=== PATIENT | female | born 1980 | race Caucasian/White ===

== ENCOUNTER 2017-01-08 13:19 | Inpatient (IN) | payer OTHER ==
[~2017-01-08] VITALS: Ht 162.6 cm; Wt 76.2 kg
[~2017-01-08 13:19] MED LIST: LISI10TA PO; METF500T4 PO; PRAV10TA39 PO
[2017-01-08] MEDS ORDERED: ASPI-1182 PO (13:35)
[2017-01-08] MEDS ORDERED: GABA-529 PO (13:35)
[2017-01-08] MEDS ORDERED: METO50 PO (13:35)
[2017-01-08 13:42] LABS: GLUCOSE,POINT OF CARE 154 MG/DL (70-110)
[2017-01-08] MEDS ORDERED: SODIUM CHLORIDE 0.9% 1,000 ML IV ONE (13:45)
[2017-01-08 13:52] LABS: BASOPHILS % (AUTO) 0.8 % (0.0-2.0); EOSINOPHILS % (AUTO) 1.6 % (1.0-6.0); HEMATOCRIT 27.6 % (36-46); HEMOGLOBIN 9.6 g/dL (12.0-16.0); LYMPHOCYTES # (AUTO) 1.3 K/uL (1.0-4.8); LYMPHOCYTES % (AUTO) 19.1 % (22.0-44.0); MEAN CORPUSCULAR HEMOGLOBIN 29.9 pg (26.0-34.0); MEAN CORPUSCULAR HGB CONC 34.7 G/dL (31.0-37.0); MEAN CORPUSCULAR VOLUME 86 fL (80-100); MONOCYTES # (AUTO) 0.6 K/uL (0.1-1.0); MONOCYTES % (AUTO) 9.2 % (2.0-9.0); NEUTROPHILS # (AUTO) 4.8 K/uL (1.8-7.7); NEUTROPHILS % (AUTO) 69.3 % (40.0-70.0); PLATELET COUNT (AUTO) 333 K/uL (150-450)
[2017-01-08 14:00] LABS: CREATININE 1.49 mg/dL (0.60-1.30); POTASSIUM 4.3 mmol/L (3.5-5.1)
[2017-01-08 14:02] LABS: PROTHROMBIN TIME 10.4 SEC (9.4-11.6)
[2017-01-08 14:05] LABS: ALBUMIN 3.9 g/dL (3.4-5.0); BILIRUBIN,TOTAL 0.6 mg/dL (0.1-1.0); TOTAL PROTEIN, SERUM 7.7 g/dL (6.4-8.2)
[2017-01-08] MEDS ORDERED: SODIUM CHLORIDE 0.9% 100 ML ONE (14:16)
[2017-01-08] MEDS ORDERED: IOVERSOL 350 MG/ML 100 ML VIAL ONE (14:16)
[2017-01-08] MEDS ORDERED: ACETAMINOPHEN 325 MG TABLET PO PRN (15:30)
[2017-01-08] MEDS ORDERED: ONDANSETRON HCL 4 MG/2 ML VIAL IVP PRN (15:30)
[2017-01-08] MEDS ORDERED: 0.9% SODIUM CHLORIDE 10 ML SYRINGE IVP PRN (15:30)
[2017-01-08 17:27] VITALS: BP 158/82
[2017-01-08 19:36] VITALS: BP 162/93
[2017-01-09 00:55] VITALS: BP 147/86
[2017-01-09 06:12] LABS: BASOPHILS % (AUTO) 1.1 % (0.0-2.0); EOSINOPHILS % (AUTO) 4.5 % (1.0-6.0); HEMOGLOBIN 9.7 g/dL (12.0-16.0); LYMPHOCYTES # (AUTO) 2.2 K/uL (1.0-4.8); LYMPHOCYTES % (AUTO) 37.4 % (22.0-44.0); MEAN CORPUSCULAR HGB CONC 34.6 G/dL (31.0-37.0); MEAN CORPUSCULAR VOLUME 87 fL (80-100); MONOCYTES # (AUTO) 0.6 K/uL (0.1-1.0); MONOCYTES % (AUTO) 10.3 % (2.0-9.0); NEUTROPHILS # (AUTO) 2.7 K/uL (1.8-7.7); NEUTROPHILS % (AUTO) 46.7 % (40.0-70.0); PLATELET COUNT (AUTO) 307 K/uL (150-450); RED BLOOD CELL COUNT(AUTO) 3.22 MIL/uL (4.00-5.20); RED CELL DISTRIBUTION WIDTH 14.1 % (11.5-14.5); WHITE BLOOD COUNT (AUTO) 5.8 K/uL (4.5-11.0)
[2017-01-09 06:14] VITALS: BP 160/88
[2017-01-09 06:19] LABS: ALBUMIN 3.1 g/dL (3.4-5.0); BILIRUBIN,TOTAL 0.3 mg/dL (0.1-1.0); CALCIUM, TOTAL 8.5 mg/dL (8.8-10.5); CREATININE 1.18 mg/dL (0.60-1.30); POTASSIUM 3.9 mmol/L (3.5-5.1); TOTAL PROTEIN, SERUM 6.8 g/dL (6.4-8.2)
[2017-01-09 07:38] VITALS: BP 141/85
[2017-01-09] MEDS ORDERED: ENOXAPARIN SODIUM 40 MG/0.4 ML PF SYRINGE SQ SCH (09:00)
[2017-01-09 11:04] VITALS: BP 145/81
[2017-01-09] MEDS ORDERED: ACETAMINOPHEN 325 MG TABLET PO PRN (14:30)
[2017-01-09] MEDS ORDERED: MAGNESIUM HYDROXIDE SUSPENSION 30 ML UDCUP PO PRN (14:30)
[2017-01-09] MEDS ORDERED: ASPIRIN 81 MG EC TABLET PO SCH (14:30)
[2017-01-09] MEDS ORDERED: IPRATROPIUM BROMIDE 0.5 MG/2.5 ML NEB SOLUTION NEB PRN (14:30)
[2017-01-09] MEDS ORDERED: MORPHINE SULFATE 2 MG/ML SYRINGE IVP PRN (14:30)
[2017-01-09] MEDS ORDERED: HYDROCODONE/ACETAMINOPHEN 5-325 MG TABLET PO PRN (14:30)
[2017-01-09] MEDS ORDERED: BISACODYL 10 MG RECTAL RECTAL SUPPOSITORY PR PRN (14:30)
[2017-01-09] MEDS ORDERED: ALBUTEROL SULFATE 2.5 MG/0.5 ML NEB SOLUTION NEB PRN (14:30)
[2017-01-09] MEDS ORDERED: ZOLPIDEM TARTRATE 5 MG TABLET PO PRN (14:30)
[2017-01-09] MEDS ORDERED: ONDANSETRON HCL 4 MG/2 ML VIAL IVP PRN (14:30)
[2017-01-09] MEDS ORDERED: METOPROLOL TARTRATE 50 MG TABLET PO ONE (14:30)
[2017-01-09 14:44] LABS: GLUCOSE,POINT OF CARE 162 MG/DL (70-110)
[2017-01-09 14:44] LABS: GLUCOSE,POINT OF CARE 274 MG/DL (70-110)
[2017-01-09 15:24] VITALS: BP 130/86
[2017-01-09] MEDS ORDERED: MetFORMIN HCL 500 MG TABLET PO SCH (18:00)
[2017-01-09 20:02] VITALS: BP 153/96
[2017-01-09] MEDS ORDERED: PRAVASTATIN SODIUM 10 MG TABLET PO SCH (21:00)
[2017-01-09] MEDS ORDERED: DOCUSATE SODIUM 100 MG CAPSULE PO SCH (21:00)
[2017-01-09] MEDS ORDERED: GABAPENTIN 100 MG CAPSULE PO SCH (21:00)
[2017-01-10] MEDS ORDERED: HEPARIN SODIUM,PORCINE 5,000 UNITS/ML VIAL SQ SCH (08:00)
[2017-01-10] MEDS ORDERED: LISINOPRIL 10 MG TABLET PO SCH (09:00)
[2017-01-10] MEDS ORDERED: ASPIRIN 81 MG EC TABLET PO SCH (09:00)
[2017-01-10] MEDS ORDERED: METOPROLOL TARTRATE 50 MG TABLET PO SCH (09:00)
[2017-01-10] MEDS ORDERED: PANTOPRAZOLE SODIUM 40 MG/VIAL IVP SCH (09:00)
== END 2017-01-09 20:30 | disposition home or self-care (01) | DRG 204 ==
LOC: EMS 13:20 → INTOOBSV 16:20 → OBSVTOIN 16:20 → 5S 16:20
PROVIDERS: ADMIT Hospitalist; ATTEND Hospitalist
DX: R55 Syncope and collapse (principal); I10 Essential (primary) hypertension; D64.9 Anemia, unspecified; F15.10 Other stimulant abuse, uncomplicated; E11.9 Type 2 diabetes mellitus without complications; E78.5 Hyperlipidemia, unspecified; Z96.659 Presence of unspecified artificial knee joint; Z79.899 Other long term (current) drug therapy
CPT/HCPCS: 70450; 71260; 82271; 82948; 82962; 93005; 93306; 93880; 96360; 96361; 99285; J1650; J7050